=== PATIENT | female | born 1955 | race Caucasian/White ===

== ENCOUNTER 2022-07-30 09:15 | Emergency (ER) | payer MEDICARE, SELFPAY ==
[2022-07-30] VITALS (18 sets, daily range): BP systolic 123–141; BP diastolic 60–85; PULSE 0–81; RESP 12–17; TEMP 35.6; O2SAT 97–100
--- NOTE | 2022-07-30 09:15 | DI.CT_ITS ---
Exam(s) CT HEAD WO EXAM: CT HEAD WO CLINICAL HISTORY: Hallucinations. TECHNIQUE: Imaging Protocol: Axial computed tomography images with coronal and sagittal reformatted images were created and reviewed COMPARISON: No exams were available for comparison FINDINGS: Ventricles and Extra axial spaces: Normal in size and morphology for the patient's age. Hemorrhage: None. Cerebral parenchyma: Normal. Midline shift: None. Brainstem/Cerebellum: Normal. Calvarium: Normal. Visualized Paranasal sinuses/Mastoids: Clear. Soft Tissues: Unremarkable. IMPRESSION: No acute intracranial process. RADIATION DOSE DELIVERED: 642.41mGy.cm Total DLP DATA REPOSITORY: All CT scans at this facility are submitted to the National Radiology Data Registry (NRDR) Dose Index Registry (DIR) with the [employer] (ACR). RADIATION OPTIMIZATION: All CT scans at this facility use at least one of these dose optimization te chniques: automated exposure control; mA and/or kV adjustment per patient size (includes targeted exa ms where dose is matched to clinical indication); or iterative reconstruction.
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
[2022-07-30] MEDS: LORazepam 0.5 MG TAB PO (09:45)
[2022-07-30 09:56] LABS: Abs Immature Grans 0.02 10^3/uL (0.0-0.06); Absolute Basophil Count 0.09 10^3/uL (0.0-0.2); Absolute Eosinophil Count 0.17 10^3/uL (0.0-0.7); Absolute Lymphocyte Count 1.09 10^3/uL (1.2-3.4); Absolute Monocyte Count 0.47 10^3/uL (0.1-0.8); Absolute Neutrophil Count 4.45 10^3/uL (1.2-6.7); Basophils % 1.4; Eosinophils % 2.7; HCT 46.8 % (36.0-46.0); HGB 15.5 g/dL (11.2-15.7); Immature Grans % 0.3; Lymphocytes % 17.3; MCH 29.9 pg (27.0-33.0); MCHC 33.1 % (32.0-36.0); MCV 90 fL (80-95); MPV 10.2 fL (8.0-11.0); Monocytes % 7.5; Neutrophils % 70.8; Platelet Count 233 10^3/uL (130-400); RBC 5.18 10^6/uL (3.93-5.22); RDW 12.8 % (11.7-14.6); RDW-SD 42.7 fL; WBC 6.29 10^3/uL (4.4-10.8)
--- NOTE | 2022-07-30 10:04 | NUR.NOTE ---
Nursing Note: Request for information from [facility] faxed 07/30/22. Request for discharge summary, h&p, medication list, problem list, allergies, and EKG. No protected health information per pt. Health Information not working the weekend. Dr. Zaidi requested when the information is received to have it put in the patient record.
[2022-07-30 10:20] LABS: Salicylate 6.7 mg/dL (<2.8)
[2022-07-30 10:21] LABS: ALT 34 U/L (14-59); AST 26 U/L (15-37); Acetaminophen < 2 ug/mL (10-30); Albumin 4.2 g/dL (3.4-5.0); Alkaline Phosphatase 61 U/L (46-116); Anion Gap 12.3 mmol/L (3-11); BUN 7 mg/dL (7-18); Bilirubin, Total 0.5 mg/dL (0.2-1.0); CO2 26.7 mmol/L (21.0-32.0); CREATININE 0.9 mg/dL (0.55-1.02); Chloride 103 mmol/L (98-107); Glucose 111 mg/dL (74-106); Sodium 142 mmol/L (136-145); TSH (W/Ref FT4) 0.55 uIU/mL (0.36-3.74); Total Protein 7.9 g/dL (6.4-8.2); Troponin I < 50 ng/L (<or=60)
[2022-07-30 10:22] LABS: ETHANOL BLOOD < 3.0 mg/dL (<10)
[2022-07-30 10:24] LABS: Potassium 2.5 mmol/L (3.5-5.1)
--- NOTE | 2022-07-30 10:45 | RT.EKG_ITS ---
APPROVED REPORT Exam: Resting ECG Reason for Exam: low potassium Patient Location: E HR:68 bpm ECG Measurements Heart Rate 68 AXIS NE 157 P 19 QRSd 94 QRS 64 QT 417 T -56 QTc 444 Conclusion Sinus rhythm...normal P axis, V-rate 60- 99
[2022-07-30 10:46] LABS: Bilirubin Negative (Negative); Blood Negative (Negative); Clarity Clear (Clear); Glucose Negative (Negative); Ketones Negative (Negative); Leukocyte Esterase Negative (Negative); Nitrite Negative (Negative); Urobilinogen 0.2 EU/dL (Up TO 0.2)
[2022-07-30 10:50] LABS: Magnesium 1.9 mg/dL (1.8-2.4)
[2022-07-30 10:50] LABS: *AMPHETAMINES SCREEN URINE Negative (Negative); *BARBITURATES SCREEN URINE Negative (Negative); *BENZODIAZEPINES SCREEN URINE Negative (Negative); Cannabinoids THC Positive (Negative); Cocaine Screen,Urine Negative (Negative); METHADONE URINE SCREEN Negative (Negative); OPIATES URINE SCREEN Negative (Negative)
[2022-07-30 10:51] LABS: Tricyclic Antidepressants Negative (Negative)
--- NOTE | 2022-07-30 10:54 | DI.VRAD_ITS ---
PROCEDURE INFORMATION: Exam: CT Head Without Contrast Exam date and time: 07/30/2022 10:37 AM Age: 67 years old Clinical indication: Altered mental status/memory loss and visual disturbance TECHNIQUE: Imaging protocol: Computed tomography of the head without contrast. COMPARISON: No relevant prior studies available. FINDINGS: Brain: No acute hemorrhage identified. No large territorial areas of hypoattenuation concerning for ischemic infarct identified. No intracranial mass effect. Cerebral ventricles: The ventricles are within normal limits. Paranasal sinuses: The visualized sinuses are unremarkable. Mastoid air cells: The visualized mastoid air cells are well aerated. Bones/joints: The osseous structures are intact. Soft tissues: Unremarkable. IMPRESSION: No acute intracranial abnormality. Dictated and Authenticated by: Miguel Angel Enriquez MD. Ordering:MAHESH Barnett MD
[2022-07-30] MEDS: Potassium Chloride 20 MEQ TABCR PO (11:00)
[2022-07-30] MEDS: POTASSIUM CHLORIDE 20 MEQ/100 ML BAG 50 MEQ IVPB (11:00)
[2022-07-30 14:02] LABS: Anion Gap 9.1 mmol/L (3-11); BUN 8 mg/dL (7-18); CO2 25.9 mmol/L (21.0-32.0); CREATININE 0.8 mg/dL (0.55-1.02); Calcium 7.9 mg/dL (8.5-10.1); Chloride 109 mmol/L (98-107); Estimated GFR 79.71 (mL/min/1.73m2); Glucose 125 mg/dL (74-106); Sodium 144 mmol/L (136-145)
[2022-07-30 14:03] LABS: Potassium 2.8 mmol/L (3.5-5.1)
[2022-07-30] MEDS: Potassium Chloride Liquid 20 MEQ PKT PO (15:30)
[2022-07-30] MEDS: POTASSIUM CHLORIDE 10 MEQ/100 ML BAG 100 MEQ IVPB (15:30)
[2022-07-30 17:13] LABS: Potassium 3.2 mmol/L (3.5-5.1)
--- NOTE | 2022-07-30 17:43 | CMSP_ITS ---
- If Service Date Differs Date of service: 07/30/22 Time of Service: 17:43 Care Management Safety Plan Status: Interim - Reason for Wait Reason for Wait: Medical Clearance CM will respond to ED to assess patient after patient has been medically cleared and assessed by screener. If screener deems patient meets criteria for psychiatric stabilization CM will facilitate interdepartmental huddle with [facility] screener for safety planning considerations and meet with patient to review [facility] policy and safety plan, establish individual wishes for treatment and maintain patient rights. In the interim; please note safety plan below to guide patient care while awaiting further assessment in the ED. SAFETY PLAN: 1. Will remain on suicide precautions and in paper clothes. 2. Will remain in room under direct supervision of one-on-one staff at all times provided by [employer], KACY, CALCULATOR OPERATOR chief librarian work with blind. 3. May have paper cups, plates, finger foods as well as a cardboard spoon with which to eat meals. 4. Follow [facility] Management of the Admitted Behavioral Health Patient policy. 5. Personal care: Comfort bath system only at this time. 6. Bathroom privileges: with escort in ED. Available in room without limitation on Med/Surg. 6. No personal belongings at this time; per RN discretion. 7. Visitors: limited to daughter, at RN discretion. 8. Phone contact limited to legal contact at this time. 9. Activities: Music tablet per RN discretion. Med/Surg: Television and remote available at RN discretion. 10. Due to VOLUNTARY status, if patient wishes to leave [facility], staff will contact [facility] Crisis Screener ([phone]) and On-Call Intranet Developer ([phone]) as soon as possible. In the event of elopement, notify [facility] Police ([phone]). If deemed appropriate for inpatient psychiatric care, safety plan will be established with patient, and care team, to adhere to patient goals, identify restrictions based on behavioral status, address nutrition, and determine allowed personal belongings, tools for hygiene and personal care. As well plan will determine level of activity including ambulation, level of supervision, visitors, and determine privileges based on level of acuity, behaviors and level of engagement by patient.
[2022-07-30] MEDS: LORazepam 1 MG TAB PO (18:07)
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
--- NOTE | 2022-07-31 02:01 | NUR.NOTE ---
Patient asked to be given Levothyroxine 50 mcg for her thryroid. RN notified. This writing reminded patient it is 2 am and she would be getting her medicine later. Patient stated she usually goes to bed at 8 pm and wakes up at 4 am. This scenario writer suggested she get more sleep. Patient agreed and said she will get some more sleep. Nursing Note:
[2022-07-31] MEDS: OLANZapine 10 MG TAB PO (06:32)
--- NOTE | 2022-07-31 08:25 | W.EDPROG ---
Date of service: 07/31/22 Time of Service: 08:25 Medical Decision Making Received signout from Dr. Salmon who had taken care of the patient overnight from July 30 to July 31. He does have a history of previous admissions to the psychiatric [facility] at [facility] in [place], [place]. Her daughter related that over the past few weeks patient has become more disorganized, not taking her medications, and was found in a dirty and disorganized apartment at her home in [place]. She relocated to [place] and over the past few days has demonstrated increasing visual and auditory hallucinations, dangerous behavior such as leaving the stove on and leaving the room, talking to people and things that are not present. She was placed under emergency evaluation last night. She has been given Zyprexa and is improved and stable. I have restarted her on low-dose levothyroxine and simvastatin. We will continue to monitor her blood pressure before restarting nifedipine. She remains stable and slowly improving, we await further input from psychiatry/mental health. 08/02/22 Dr. Rivas 0800 --please see previous provider's notes for initial presentation, exam, plan and course. Case endorsed to follow-up with mental health regarding disposition. 1215 --patient accepted for transfer to [facility]. Accepting physician Dr. Price. Medical Records Medical records reviewed: Yes I reviewed the patient's medical records. Sign Out Sign Out Data: Sign Out Comment: Visual and auditory hallucinations. Pending Mental Health evaluation and dispo. Hypokalemia has received 30meq Kcl IV and 40 meq KCL PO. Last updated by Ericka Joshi NP at 07/30/22 15:27 Sign Out Comment: Follow-up with mental health, question need for EE Last updated by Richard Zaidi MD at 07/30/22 19:52 Sign Out Comment: Patient stable throughout the evening, EE completed by myself. No interventions needed. 10 mg of Zyprexa given this morning Last updated by Brad Salmon DO at 07/31/22 07:16 Sign Out Comment: Stable through day, second cert this evening Last updated by Richard Zaidi MD at 07/31/22 19:40 Sign Out Comment: Patient stable throughout the night. No interventions needed Last updated by Brad Salmon DO at 08/01/22 07:28 Sign Out Comment: Stable thru day shift. [facility] requests improved K+, recheck in AM Last updated by Richard Zaidi MD at 08/01/22 18:51 Sign Out Comment: Patient stable throughout the night. No interventions needed. Pending repeat potassium. Last updated by Brad Salmon DO at 08/02/22 07:04 Discharge Plan Disposition Patient Disposition: [facility] Condition: Stable Discharge Details Clinical Impression: Acute psychosis, Delusions Primary Care Provider: Unknown,Unknown ED Provider: Gladis Rivas Home Meds and New Rx's Prescriptions: No Action aspirin 325 mg Tablet 650 mg PO DAILY simvastatin [Zocor] 10 mg Tablet 10 mg PO DAILY amitriptyline 50 mg Tablet 50 mg PO DAILY nifedipine [Procardia XL] 90 mg Tablet Extended Release 24hr 90 mg PO DAILY levothyroxine 50 mcg Tablet 50 mcg PO DAILY furosemide 20 mg Tablet 20 mg PO DAILY cyclobenzaprine [Flexeril] 5 mg Tablet 5 mg PO DAILY Discharge Data Discharge Date/Time-TO BE ENTERED AT DEPARTURE: 08/02/22 14:17
--- NOTE | 2022-07-31 08:43 | NUR.NOTE ---
Nursing Note: Per patient note to physician this information was given: Zohaib Gottlieb [phone] Adarsh Ocampo [phone] Danielle Ocampo only as necessary, she works Consult with Ad Nicholson MD [facility] PCP Han Spencer MD [phone]
[2022-07-31 08:57] LABS: Source Nasal/Nares
[2022-07-31 09:32] LABS: COVID-19 PCR Negative (Negative)
--- NOTE | 2022-07-31 09:48 | CMSP_ITS ---
- If Service Date Differs Date of service: 07/31/22 Time of Service: 09:48 Care Management Safety Plan Status: Involuntary - Reason for Wait Reason for Wait: Other (Awaiting 2nd Certification by Psychiatrist) INVOLUNTARY FOR INPATIENT PSYCHIATRIC STABILIZATION. A huddle is held at 9:[address] Zaidi, ED provider, Phuong, nursing planning supervisor, SHIRA Sanders, and JAYLEN Khan, in attendance. Safety plan has been established to meet the needs of the patient, and consideration of the care team, to adhere to patient goals, identify restrictions based on behavioral status, address nutrition, and determine allowed personal belongings, tools for hygiene and personal care. Determine level of activity including ambulation, level of supervision, visitors, and determine privileges based on behaviors and level of engagement by pt. SAFETY PLAN: 1. Will remain on SI/HI precautions. In Paper Clothes 2. Will remain in room under direct supervision of one-on-one staff at all times provided by CPSO, KACY, ESTIMATOR PAPERBOARD BOXES corset fitter. 3. May have paper cups, plates, finger foods as well as a plastic spoon or fork to eat meals. Plastic utensils are to be removed from the room as soon as patient is done eating. 4. Follow [facility] Management of the Admitted Behavioral Health Patient policy. 5. Shower with escort at RN discretion. 6. No personal belongings 7. Visitors: No visitors at this time. 8. Activities: Soft cart items, television if available, and other activities at RN discretion. 9. Bathroom privileges with escort. 10. Phone: Limited to legal contacts, at RN discretion. 11. Due to INVOLUNTARY status, patient is being held at [facility] by the Department of Mental Health ([facility]) until 2nd certification by [facility] Psychiatrist can be performed (within 24 hours). Staff will provide de-escalation support (CPI) as needed. If patient wishes to leave [facility], staff will contact [facility] Crisis Screener ([phone]) and On-Call Ems Driver ([phone]) as soon as possible. In the event of elopement, notify [facility] Police ([phone]). Patient is currently involuntarily at [facility]. [facility] Frontline Thermospray Operator will continue seeking placement. Please contact the Spinning And Winding Supervisor Ems Driver ([phone]) for any needed changes to Safety Plan. Safety plan has been provided to interdepartmental care team. Patient will be transported by [facility] at time of discharge.
[2022-07-31 14:41] VITALS: BP 151/76; PULSE 59; RESP 19; TEMP 36.8; O2SAT 98
--- NOTE | 2022-07-31 17:17 | PDOC.ERCMPRO ---
- If Service Date Differs Date of service: 07/31/22 Time of Service: 17:17 Care Management Progress Note S/O: Hetal presents in the ED on 07/30/22 with a chief complaint of hallucinations. Per provider note, Hetal's daughter reports that her mom has been exhibiting strange behaviors, such as having conversations with the toilet and talking to people who aren't there. Hetal was assessed twice by Sharri [facility] Crisis Screener, and was eventually placed on involuntary status. Hetal is sitting on the side of the bed eating dinner when CM comes to meet with her today. She asks what licensure I have and when advised I have a Masters in Social Work but I am not licensed, she refuses to speak with me and asks that I leave her room. CM complies with her request. A: Hetal is a 67 year old female who remains at [facility] awaiting a 2nd Certification by Psychiatrist. P: Hetal will remain at [facility] involuntarily and will be reassessed twice daily by [facility] until a psychiatric bed can be secured for her. CM will continue to follow. - Status Status: Involuntary - Reason for Wait Reason for Wait: Other (Second Certification by Psychiatrist)
--- NOTE | 2022-07-31 21:37 | MHPN_ITS ---
Date of service: 07/31/22 Time of Service: 13:40 Mental Health Emergency Note Release [facility] release signed:: No Reason for Visit Client is on EE status In the last 2 weeks has the pt presented for ES prior to today?: Unknown Client Information Client is: New Well Housed: No,status: Not homeless, Unstable housing Non Suicidal Self Injury Current: No History: No Safety Risk/Harm to Self or Others Current Ideation to Harm Self or Others: No Risk: Does risk to harm exist?: No Risk: N/A Duty to warn indicated: No Asssessment/Mental Status Appearance: Disheveled and Poor hygiene Attitude: Demanding, Guarded and Hostile Behavior: Poor impulse control, Agitated and Gait disturbances Speech: Loud Affect: Cogruent with mood Mood: Elevated, Stressed and Irritable Thought process: Loose associations, Flight of ideas and Tangential Delusions: yes, Oriental Orthodox and Persectory/Paranoid Attention: Unremarkable Perception: Not impaired Orientation: Fully orientated Memory: Intact Insight: Poor Judgement: Poor Neurovegetative Symptoms Sleep: Decrease Appetitie: No change Interests: No change Energy: No change Libido: Not applicable Substance Use: Do you use nicotine?: No Have you used substances in the last 7 days?: yes, Medical Marijuana Additional Issues: Assaultive/Threatening Behavior: No Medical Concerns: No Client engaged in active self harm w/weapon: No Threatening to run away: No Child reported abuse/neglect: No Voluntarily presenting for services: No Domestic violence is a concern: No Extreme Psychosis or extreme behavior is present: Yes Impression Client is not endorsing SI/HI/NSSI at this time. SB is extremely delusional and reports her ex is the reason all of this is happening to her. SB does not want to engage with this life insurance underwriter. This life insurance underwriter attempted several times to get client to engage in a meaningful conversation and SB woudl not. SB asked this clinician if they were an ASSISTANT DIRECTOR OF FINANCIAL AID this clinician repsonded they have not finished kerry master's program yet and she demanded this clinician leave her room due to not being licensed. Plan/Disposition Recommended Disposition: Hospitalization (Facilities will be contact after second cert.) No. Plan: Client is waiting for involuntary treatment. Person reported agreement to plan: No Reports/communication Outcome discussed with: ED/Personnel
[2022-08-01] MEDS: Levothyroxine 25 MCG TAB PO (08:30)
[2022-08-01 08:41] VITALS: BP 164/93; PULSE 65; RESP 17; TEMP 36.8; O2SAT 98
--- NOTE | 2022-08-01 09:09 | PSYCO_ITS ---
Date of service: 08/01/22 Time of Service: 09:09 History of Present Illness History of Present Illness Chief Complaint: I have a deep voice and used to be a woman and mothered three children Narrative: 4 hour telepsych consult requested by Dr. Zaidi. Initial effort to evaluate patient were unsuccessful due to patient refusal to be interviewed. She is seen again today, but is uncooperative with examination. Little is know about patient save for what was reported by her daighter. My Damaris was recently relocated to the [facility] by her daughter after being found t be livig in squalor at her apartment in the [place], [place] area. She has a longstanding history of psychiatric illness and was declining in recent months. Over the past two weeks, her decline continues with increased psychotic sysmptoms notable. 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 She has been evaluated by [facility] crisis servivce who has EE'd the patient. Currently awaiting placement in inpatient psychiatriarty. Patient was given outpatient primary care medications as well as olanzapine 10 mg daily, which she has accepted each of the last two days. Assessment and Plan Assessment and plan (1) Mental health disorder: Status: Acute (2) Psychosis: Status: Acute Assessment and plan: Acute psychosis impairing safety and reality oritentation requiring inpatient psychiatric care for safety and stabilization. Continue olanzapine 10 mg daily referral for inpatient level of care pending. PFSH All Active Problems (Updated 08/01/22 @ 09:17 by Gabriel Damon MD) Psychosis (Acute) Mental health disorder (Acute) Social History Smoking/Tobacco Use Status: Current every day Smoking risk assessment performed?: Yes Alcohol Intake: current Alcohol Intake frequency: holidays/special occasions only Drug use: Daily Substance use type: marijuana Do you feel safe at home: Yes Exam Narrative Exam Narrative: Appears somewhat undernourished, thin, frail appearing. Dressed in hospitlat viet and an unruly blonde wig. Speech is slightly pressured, and somewhat incoherent. Mood is irritable. Thought process is disorganized, loose, tangential. Thought content is paranoid and delusional. Inisght and judgment are limited. Results Last Vital Signs Temp 36.8 C 08/01/22 08:41 Pulse 65 08/01/22 08:41 Resp 17 08/01/22 08:41 BP 164/93 H 08/01/22 08:41 Pulse Ox 98 08/01/22 08:41 Labs Result diagrams: 07/30/22 09:48 07/30/22 17:04 Labs: Laboratory Results - last 24 hr 07/31/22 08:54 SARS-CoV-2 (PCR) Negative Consent/Time spent Consent/Time Spent The patient has consented to a virtual communication with the provider: No Visit performed via: Telehealth Time Spent (minutes): 40
[2022-08-01] MEDS: NIFEdipine-CR 30 MG TABCR 90 MG PO (09:54)
--- NOTE | 2022-08-01 09:55 | NUR.NOTE ---
Nursing Note: Pt compliant with taking procardia but refused zyprex. She asked what it was used for and when i told her it was under the antipsychiotic medication class, she handed the medication back and said I am not taking this, I am not psychotic. I am going to get my pants on and I am leaving! I would rather deal with the crazies in [place]! Zyprexa removed from the room and disposed of.
--- NOTE | 2022-08-01 11:25 | MHPN_ITS ---
Date of service: 08/01/22 Time of Service: 10:50 Mental Health Emergency Note Release [facility] release signed:: No Reason for Visit Client arrived to [facility] ED on 07/30/22. ESC Sharri Hathawayald wrote an EE due to active delusions. Client is seen this morning for first daily QMHP screening. In the last 2 weeks has the pt presented for ES prior to today?: Unknown Client Information Client is: Adult Outpatient Well Housed: No,status: Not homeless, Unstable housing Non Suicidal Self Injury Current: No History: No Safety Risk/Harm to Self or Others Current Ideation to Harm Self or Others: No Risk: Does risk to harm exist?: yes. Access to means: No. Risk: Moderate Risk (Client is having active delusions and making unsafe decisons that put her at risk to both herself and others. ) Duty to warn indicated: No Asssessment/Mental Status Appearance: Disheveled Attitude: Guarded (Client engaged minimally with assessment. ) Behavior: Unremarkable Speech: Slow and Hesitant Affect: Expansive and Cogruent with mood Mood: Stressed, Depressed and Irritable Thought process: Loose associations Hallucinations: yes, Visual and Auditory Delusions: yes, Persectory/Paranoid and Bizarre Attention: Poor concentration Perception: Not impaired Orientation: Disoriented in Time and Place Memory: Impaired in: Immediate and Recent Insight: Poor Judgement: Poor Neurovegetative Symptoms Sleep: No change Appetitie: Decrease (Clients nurse reports that client initially refused breakfast tray this morning, however did pick at her tray a little bit after. ) Interests: Decrease Energy: Decrease Libido: Not applicable Substance Use: Do you use nicotine?: Yes Have you used substances in the last 7 days?: No Additional Issues: Assaultive/Threatening Behavior: No Medical Concerns: No Client engaged in active self harm w/weapon: No Threatening to run away: No Child reported abuse/neglect: No Voluntarily presenting for services: No Domestic violence is a concern: No Extreme Psychosis or extreme behavior is present: No Impression Client appears to continue to have active delusions and paranoia. She states that her daughter is part of the [employer] family now and that she does not want anything to do with her ever again. When this scientific technical writer asked client to clarify what she meant by the [employer] family she states: I don't really know because I am not part of it. Client also states to this scientific technical writer: I am putting on my pants and leaving here headed to [place] to deal with all of the crazies down there. Plan/Disposition Recommended Disposition: Hospitalization (Referrals faxed to [facility], [facility], [facility], and [facility]. ) facilities contacted. Plan: Client will remain at [facility] ED on involuntary status pending admission to an inpatient facility. Referrals have been faxed to [facility], [facility], [facility], and . Client will be assessed by [facility] 2x daily until placement is secured or clients acuity decreases and she can be safety planned home. Person reported agreement to plan: No Facilities contacted if Applicable [facility] Not accepted, (Received referral, under review. ) [facility] (No beds available. ) Not accepted, No bed available [facility] Not accepted, No bed available, [facility] Not accepted, No bed available Reports/communication Outcome discussed with: ED/Personnel (Verbal passover with ED attending physician Dr. Zaidi. )
--- NOTE | 2022-08-01 12:18 | NUR.NOTE ---
Pt. came out of her room and stated that she wanted paperwork to be discharged. Advised she needed to stay, patient stated she got into an argument with her daughter because she put salt in the spagetti sauce and didn't give her orange juice with her meds and that is why she is here now. She wants to go back to [place].Nursing Note:
--- NOTE | 2022-08-01 12:18 | NUR.NOTE ---
Nursing Note: Pt got up from nap, left room to walk over to the nurses office. CPSO tried to redirect her and pt told her you are a child and I dont have to listen to you. Pt then went and spoke with another nurse and then returned to room. See other nurses note. Pt back in room talking to herself stating I am going to leave here. This is bullshit and I dont have to stay here! Im not doing it
--- NOTE | 2022-08-01 14:52 | W.EDPROG ---
Date of service: 08/01/22 Time of Service: 14:53 Medical Decision Making Patient remained stable for the day shift of August 01. She has had her second certification performed by the state psychiatrist. She awaits further definitive inpatient psychiatric disposition. Sign Out Sign Out Data: Sign Out Comment: Visual and auditory hallucinations. Pending Mental Health evaluation and dispo. Hypokalemia has received 30meq Kcl IV and 40 meq KCL PO. Last updated by Ericka Joshi NP at 07/30/22 15:27 Sign Out Comment: Follow-up with mental health, question need for EE Last updated by Richard Zaidi MD at 07/30/22 19:52 Sign Out Comment: Patient stable throughout the evening, EE completed by myself. No interventions needed. 10 mg of Zyprexa given this morning Last updated by Brad Salmon DO at 07/31/22 07:16 Sign Out Comment: Stable through day, second cert this evening Last updated by Richard Zaidi MD at 07/31/22 19:40 Sign Out Comment: Patient stable throughout the night. No interventions needed Last updated by Brad Salmon DO at 08/01/22 07:28 Discharge Plan Disposition Patient Disposition: STILL A PATIENT Condition: Stable Discharge Details Clinical Impression: Mental health disorder Primary Care Provider: Unknown,Unknown ED Provider: Richard Zaidi Home Meds and New Rx's Prescriptions: No Action aspirin 325 mg Tablet 650 mg PO DAILY simvastatin [Zocor] 10 mg Tablet 10 mg PO DAILY amitriptyline 50 mg Tablet 50 mg PO DAILY nifedipine [Procardia XL] 90 mg Tablet Extended Release 24hr 90 mg PO DAILY levothyroxine 50 mcg Tablet 50 mcg PO DAILY furosemide 20 mg Tablet 20 mg PO DAILY cyclobenzaprine [Flexeril] 5 mg Tablet 5 mg PO DAILY
[2022-08-01 17:33] LABS: BUN 8 mg/dL (7-18); CREATININE 0.8 mg/dL (0.55-1.02); Calcium 9.4 mg/dL (8.5-10.1); Chloride 104 mmol/L (98-107); Estimated GFR 79.71 (mL/min/1.73m2); Glucose 141 mg/dL (74-106); Potassium 3.1 mmol/L (3.5-5.1); Sodium 140 mmol/L (136-145)
--- NOTE | 2022-08-01 17:44 | MHPN_ITS ---
Date of service: 08/01/22 Time of Service: 17:00 Mental Health Emergency Note Release [facility] release signed:: No Reason for Visit Client is on EE status awaiting involuntary treatment. In the last 2 weeks has the pt presented for ES prior to today?: Unknown Client Information Client is: New Well Housed: No,status: Not homeless, Unstable housing Non Suicidal Self Injury Current: No History: No Safety Risk/Harm to Self or Others Current Ideation to Harm Self or Others: No Risk: Does risk to harm exist?: No Risk: Low Risk Duty to warn indicated: No Asssessment/Mental Status Appearance: Disheveled Attitude: Demanding, Guarded and Hostile Behavior: Agitated Speech: Pressured Affect: Cogruent with mood Mood: Stressed, Anxious and Irritable Thought process: Circumstational and Tangential Hallucinations: No evidence Delusions: yes, Hinduism and Persectory/Paranoid Attention: Unremarkable Perception: Not impaired Orientation: Fully orientated Memory: Intact Insight: Poor Judgement: Poor Neurovegetative Symptoms Sleep: No change Appetitie: No change Interests: No change Energy: No change Libido: Not applicable Substance Use: Do you use nicotine?: No Have you used substances in the last 7 days?: yes, Medical Marijuana Additional Issues: Assaultive/Threatening Behavior: No Medical Concerns: No Client engaged in active self harm w/weapon: No Threatening to run away: No Child reported abuse/neglect: No Voluntarily presenting for services: No Domestic violence is a concern: No Extreme Psychosis or extreme behavior is present: Yes Impression * SB reprots she has been sleeping on and off today and that she has eaten two meals. Client reports experiencing a PTSD flashback, as she called it, about the draft and [place] veterans. Client reports crying today due to her mothers years ago.Client is not currently endorsing SI/HI/NSSI. Client reports her plan to discharge herself in the morning; this clinician informed this client she was on an involuntary status at [facility]. Client became escalated and reported she will only go to [facility]. This clinician attempted to explain that whoever has a bed first is where she will be transferred; client states I will riot. Client reports this clinician is giving her a heart attack and to get out of her room. Plan/Disposition Recommended Disposition: Hospitalization facilities contacted. Plan: Client is waiting for involuntary treatment. Person reported agreement to plan: No Facilities contacted if Applicable [facility] Not accepted, No bed available [facility] Not accepted, No bed available [facility] Not accepted, No bed available Reports/communication Outcome discussed with: ED/Personnel
[2022-08-01] MEDS: Simvastatin 10 MG TAB 20 MG PO (18:28)
[2022-08-01] MEDS: OLANZapine 10 MG TAB PO (18:28)
[2022-08-01] MEDS: Potassium Chloride 20 MEQ TABCR (18:38)
[2022-08-02 07:37] VITALS: BP 122/78; PULSE 69; RESP 16; TEMP 37.2; O2SAT 98
[2022-08-02] MEDS: NIFEdipine-CR 30 MG TABCR 90 MG PO (07:39)
[2022-08-02] MEDS: Potassium Chloride 20 MEQ TABCR PO (07:39)
[2022-08-02] MEDS: OLANZapine 10 MG TAB PO (07:39)
[2022-08-02] MEDS: Levothyroxine 25 MCG TAB PO (07:39)
[2022-08-02 09:18] LABS: Anion Gap 8.1 mmol/L (3-11); BUN 10 mg/dL (7-18); CO2 29.9 mmol/L (21.0-32.0); CREATININE 0.9 mg/dL (0.55-1.02); Chloride 107 mmol/L (98-107); Glucose 76 mg/dL (74-106); Potassium 3.6 mmol/L (3.5-5.1); Sodium 145 mmol/L (136-145)
--- NOTE | 2022-08-02 10:21 | PDOC.CMSAFED ---
- If Service Date Differs Date of service: 08/02/22 Time of Service: 10:21 Care Management Safety Plan Status: Involuntary Safety plan has been established to meet the needs of the patient, and consideration of the care team, to adhere to patient goals, identify restrictions based on behavioral status, address nutrition, and determine allowed personal belongings, tools for hygiene and personal care. Determine level of activity including ambulation, level of supervision, visitors, and determine privileges based on behaviors and level of engagement by pt. INVOLUNTARY SAFETY PLAN: 1. Will remain on SI/HI precautions. In Paper Clothes 2. Will remain in room under direct supervision of one-on-one staff at all times provided by CPSO, RN GERIATRIC, RADIO DIRECTOR private branch exchange operator. 3. May have paper cups, plates, finger foods as well as a plastic spoon or fork to eat meals. Plastic utensils are to be removed from the room as soon as patient is done eating. 4. Follow [facility] Management of the Admitted Behavioral Health Patient policy. 5. Shower with escort at RN discretion. 6. No personal belongings at this time. 7. Visitors: No visitors at this time. 8. Activities: Soft cart items, television, music therapy, other activities at RN discretion. 9. Bathroom privileges with escort. 10. Phone: Limited to legal contacts, at RN discretion. 11. Due to INVOLUNTARY status, patient is being held at [facility] by the Department of Mental Health ([facility]) until 2nd certification by [facility] Psychiatrist can be performed (within 24 hours). Staff will provide de-escalation support (CPI) as needed. If patient wishes to leave [facility], staff will contact [facility] Crisis Screener ([phone]) and On-Call Storekeeper Engineering ([phone]) as soon as possible. In the event of elopement, notify [place] [employer] Police ([phone]). Patient is currently involuntarily at [facility]. [facility] Frontline High Risk Case Manager will continue seeking placement. Please contact the Painter Chassis Storekeeper Engineering ([phone]) for any needed changes to Safety Plan. Safety plan has been provided to interdepartmental care team. Patient will be transported by manager family at time of discharge.
--- NOTE | 2022-08-02 12:45 | PDOC.MHPN2 ---
Date of service: 08/02/22 Time of Service: 10:40 Mental Health Emergency Note Release [facility] release signed:: No Reason for Visit Client is on EE status In the last 2 weeks has the pt presented for ES prior to today?: Unknown Non Suicidal Self Injury Current: No Asssessment/Mental Status Appearance: Disheveled Attitude: Cooperative Behavior: Unremarkable Speech: Slow Affect: Flat Mood: Sad and Anxious Thought process: Racing Hallucinations: No evidence Delusions: No evidence Attention: Unremarkable Perception: Not impaired Orientation: Fully orientated Memory: Intact Insight: Fair Judgement: Fair Neurovegetative Symptoms Sleep: No change Appetitie: No change Interests: No change Energy: No change Libido: Not applicable Impression Client was assessed via zoom in [facility] ED. Client presented scattered thought process and appeared disheveled. Client presented with fair judgment/insight. Client denies actively endorsing SI/HI/NSSI. Plan/Disposition Recommended Disposition: Hospitalization facilities contacted. Plan: Client will remain in ED until placement for IP tx is secured. Facilities contacted if Applicable [facility] Accepted, Pending review. Information Sent to [facility]: Referral Reports/communication Outcome discussed with: ED/Personnel (Sarah as well as MD Gladis Rivas)
== END 2022-08-02 14:17 | disposition short-term general hospital (02) ==
PROVIDERS: Emergency Medicine; Registered Nurse Emergency; Student in an Organized Health Care Education/Training Program; Emergency Provider Physician Assistant
DX: F99 Mental disorder, not otherwise specified (principal)
CPT/HCPCS: 36415; 80048; 80053; 80307; 87635; 93005; 96374; 96376; 99285; Q3014; 70450; 80320; 80329; 81003; 83735; 84132; 84443; 84484; 85025; 93010; J3480